=== PATIENT | female | born 1990 | race African-American/Black ===

== ENCOUNTER 2018-03-31 11:28 | Emergency (ER) | payer OTHER, MEDICAID ==
[~2018-03-31] VITALS: Ht 144.8 cm; Wt 80.0 kg
[2018-03-31] MEDS ORDERED: ACETAMINOPHEN 325MG TABLET PO ONE (12:00)
[2018-03-31 12:46] LABS: CLARITY URINE CLOUDY (CLEAR); COLOR URINE YELLOW (YELLOW); KETONES URINE NEGATIVE (NEGATIVE); LEUKOCYTE ESTERASE URINE NEGATIVE (NEGATIVE); NITRITE URINE NEGATIVE (NEGATIVE); OCCULT BLOOD URINE NEGATIVE (NEGATIVE); PH URINE 6.5 (4.5-8.0); PROTEIN URINE NEGATIVE (NEGATIVE); SPECIFIC GRAVITY URINE 1.026 (1.005-1.030)
[2018-03-31 14:08] LABS: BASOPHILS % 0.3 % (0.0-2.0); EOSINOPHILS % 1.5 % (0.0-5.0); HEMATOCRIT. 35.2 % (36.0-48.0); HEMOGLOBIN. 11.3 g/dL (12.0-16.0); LYMPHOCYTES % 32.2 % (20.0-50.0); MEAN CORPUSCULAR HEMOGLOBIN 26.6 pg (28.0-32.0); MEAN CORPUSCULAR VOLUME 82.8 fL (81.0-99.0); MONOCYTES % 10.5 % (2.0-8.0); NEUTROPHILS % 55.5 % (40.0-76.0); PLATELET 313 x1000/uL (130-400); RED BLOOD CELL COUNT 4.25 mill/uL (4.2-5.4); RED CELL DISTRIBUTION WIDTH 14.2 % (11.6-14.6)
[2018-03-31 14:12] LABS: PROTHROMBIN TIME 10.8 sec (9.4-11.6)
[2018-03-31 14:55] LABS: CHLORIDE 108 mEq/L (98-107)
[2018-03-31 16:39] VITALS: BP 122/74
[2018-03-31] MEDS ORDERED: IBUPROFEN 800MG TABLET PO ONE (18:15)
== END 2018-03-31 19:04 | disposition home or self-care (01) ==
LOC: ER 12:38
DX: N83.201 Unspecified ovarian cyst, right side (principal); R10.31 Right lower quadrant pain; Z87.891 Personal history of nicotine dependence
CPT/HCPCS: 36415; 76830; 76856; 80053; 81003; 81025; 83690; 85025; 85610; 99285; Z7610

== ENCOUNTER 2018-12-17 19:46 | Emergency (ER) | payer OTHER, MEDICAID | END 2018-12-17 22:43 | disposition left against medical advice (07) | LOC: ER 19:46 | DX: Z53.21 Procedure and treatment not carried out due to patient leaving prior to being seen by health care provider (principal) ==